=== PATIENT | female | born 1995 | race Caucasian/White ===

== ENCOUNTER 2019-03-29 15:12 | Emergency (ER) | payer MEDICAID, OTHER, SELFPAY ==
--- NOTE | 2019-03-29 15:34 | EDM.PDOC ---
ED HPI GENERAL MEDICAL PROBLEM - General Chief Complaint: Neurological Problem Stated Complaint: NUMBNESS AND DROOPINESS OF RIGHT SIDE OF FACE Time Seen by Provider: 03/29/19 15:23 Source of Information: Reports: Patient History Limitations: Reports: No Limitations - History of Present Illness INITIAL COMMENTS - FREE TEXT/NARRATIVE: HISTORY AND PHYSICAL: History of present illness: Patient is a 22-year-old female presents to the ED today with concern of right- sided facial drooping today. Patient states that she had had an episode of this approximately 2 years ago for about a week and had gone away on its own. Patient denies any weakness of her arms or her legs. Other than the facial drooping on the right side, she denies any other symptoms or concerns. Patient denies any health history. Patient denies fever, chills, chest pain, shortness of breath, or cough. Denies headache, neck stiff ness, change in vision, syncope, or near syncope. Denies nausea, vomiting, abdominal pain, diarrhea, constipation, or dysuria. Has not noted any blood in urine or stool. Patient has been eating and drinking appropriately. Review of systems: As per history of present illness and below otherwise all systems reviewed and negative. Past medical history: As per history of present illness and as reviewed below otherwise noncontributory. Surgical history: As per history of present illness and as reviewed below otherwise noncontributory. Social history: See social history for further information Family history: As per history of present illness and as reviewed below otherwise noncontributory. Physical exam: General: Patient is alert, oriented, and in no acute distress. Patient laying comfortably on exam table. HEENT: Atraumatic, normocephalic, pupils equal and reactive bilaterally, negative for conjunctival pallor or scleral icterus, mucous membranes moist, TMs normal bilaterally, throat clear, neck supple, nontender, trachea midline. No drooling or trismus noted. No meningeal signs. No hot potato voice noted. Lungs: Clear to auscultation, breath sounds equal bilaterally, chest nontender. Heart: S1S2, regular rate and rhythm without overt murmur Abdomen: Soft, nondistended, nontender. Negative for masses or hepatosplenomegaly. Negative for costovertebral tenderness. Pelvis: Stable nontender. Genitourinary: Deferred. Rectal: Deferred. Skin: Intact, warm, dry. No lesions or rashes noted. Extremities: Atraumatic, negative for cords or calf pain. Neurovascular unremarkable. Patient has full range of motion of both upper and lower extremities without deficit. Neuro: Awake, alert, oriented. Unilateral facial droop on right with inability to furrow right eyebrow. Not as able to close right eye; consistent with 7th cranial nerve / facial nerve resembling bells palsy. Rest of cranial nerves unremarkable. Otherwise, Cerebellum unremarkable. Gait intact. Motor and sensory unremarkable throughout. Notes: Stroke code called upon arrival to ED. GCS [address] Mccann involved in patient care. Discussed the importance of follow up with a primary care provider / neurologist. Voices understanding and is agreeable to plan of care. Denies any further questions or concerns at this time. Diagnostics: Head CT, EKG Therapeutics: Solumedrol Prescription: Prednisone Impression: [place] palsy, right Plan: 1. You can alternate ibuprofen and Tylenol as directed for pain and discomfort. Take medication as prescribed. 2. Follow-up with a primary care provider or neurology as discussed. Return to the ED as needed and as discussed. Definitive disposition and diagnosis as appropriate pending reevaluation and review of above. - Related Data Allergies Allergy/AdvReac Type Severity Reaction Status Date / Time No Known Allergies Allergy Verified 03/29/19 15:21 Home Meds: Home Meds . 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 Musculoskeletal History: Reports: None Neurological History: Reports: None Psychiatric History: Reports: None Endocrine/Metabolic History: Reports: None Hematologic History: Reports: None Immunologic History: Reports: None Oncologic (Cancer) History: Reports: None Dermatologic History: Reports: None - Infectious Disease History Infectious Disease History: Reports: None - Past Surgical History Head Surgeries/Procedures: Reports: None HEENT Surgical History: Reports: Adenoidectomy, Oral Surgery, Tonsillectomy, Other (See Below) Cardiovascular Surgical History: Reports: None GI Surgical History: Reports: None Female Surgical History: Reports: None Endocrine Surgical History: Reports: None Neurological Surgical History: Reports: None Musculoskeletal Surgical History: Reports: None Social & Family History - Family History Family Medical History: Noncontributory - Tobacco Use Smoking Status *Q: Never Smoker - Caffeine Use Caffeine Use: Reports: None - Recreational Drug Use Recreational Drug Use: No ED ROS GENERAL - Review of Systems Review Of Systems: ROS reveals no pertinent complaints other than HPI. ED EXAM, GENERAL - Physical Exam Exam: See Below (See dictation) Course - Vital Signs Last Recorded V/S: Last Vital Signs Temp 36.5 C 03/29/19 15:12 Pulse 109 H 03/29/19 15:12 Resp 18 03/29/19 15:12 BP 155/97 H 03/29/19 15:12 Pulse Ox 99 03/29/19 15:12 - Orders/Labs/Meds Orders: Active Orders 24 hr Category Date Time Status Assess Neurological Status [RC] ASDIRECTED Care 03/29/19 15:24 Active Assess Neurological Status [RC] ASDIRECTED Care 03/29/19 15:43 Active Cardiac Monitoring [RC] . DIRECTED Care 03/29/19 15:43 Active EKG Documentation Completion [RC] STAT Care 03/29/19 15:24 Active EKG Documentation Completion [RC] STAT Care 03/29/19 15:43 Inactive Height and Weight [RC] UPON Care 03/29/19 15:43 Active Initiate Acute Stroke Protocol [RC] STAT Care 03/29/19 15:43 Active NIH Stroke Scale [RC] ASDIRECTED Care 03/29/19 15:24 Active Nursing Bedside Swallow Screen [RC] ASDIRECTED Care 03/29/19 15:43 Active Oxygen Therapy [RC] ASDIRECTED Care 03/29/19 15:43 Active Stroke Education, General [RC] Click to Edit Care 03/29/19 15:43 Active Vital Signs [RC] Q15M Care 03/29/19 15:43 Active Labs: Laboratory Tests 03/29/19 03/29/19 03/29/19 Range/Units 15:17 15:17 15:17 WBC 9.52 (4.0-11.0) K/uL RBC 4.95 (4.30-5.90) M/uL Hgb 14.2 (12.0-16.0) g/dL Hct 42.3 (36.0-46.0) % MCV 85.5 (80.0-98.0) fL MCH 28.7 (27.0-32.0) pg MCHC 33.6 (31.0-37.0) g/dL RDW Std Deviation 41.6 (28.0-62.0) fl RDW Coeff of Rafal 14 (11.0-15.0) % Plt Count 333 (150-400) K/uL MPV 10.90 (7.40-12.00) fL Neut % (Auto) 55.6 (48.0-80.0) % Lymph % (Auto) 31.3 (16.0-40.0) % [place] % (Auto) 11.9 (0.0-15.0) % Eos % (Auto) 0.9 (0.0-7.0) % Baso % (Auto) 0.3 (0.0-1.5) % Neut # (Auto) 5.3 (1.4-5.7) K/uL Lymph # (Auto) 3.0 H (0.6-2.4) K/uL [place] # (Auto) 1.1 H (0.0-0.8) K/uL Eos # (Auto) 0.1 (0.0-0.7) K/uL Baso # (Auto) 0.0 (0.0-0.1) K/uL Nucleated RBC % 0.0 /100WBC Nucleated RBCs # 0 K/uL INR 1.00 APTT 35.7 H (18.6-31.3) SEC Sodium 140 (136-145) mmol/L Potassium 3.9 (3.5-5.1) mmol/L Chloride 106 (98-107) mmol/L Carbon Dioxide 23.0 (21.0-32.0) mmol/L BUN 13 (7.0-18.0) mg/dL Creatinine 0.7 (0.6-1.0) mg/dL Est Cr Clr Drug Dosing TNP Estimated GFR (MDRD) > 60.0 ml/min Glucose 120 H (74-106) mg/dL Calcium 8.9 (8.5-10.1) mg/dL Total Bilirubin 0.3 (0.2-1.0) mg/dL AST 20 (15-37) IU/L ALT 24 (14-63) IU/L Alkaline Phosphatase 52 (46-116) U/L Troponin I < 0.050 (0.000-0.056) ng/mL Total Protein 7.8 (6.4-8.2) g/dL Albumin 4.4 (3.4-5.0) g/dL Globulin 3.4 (2.6-4.0) g/dL Albumin/Globulin Ratio 1.3 (0.9-1.6) TSH 3rd Generation 1.30 (0.36-3.74) uIU/mL Meds: Medications Discontinued Medications Generic Name Dose Route Start Last Admin Trade Name Freq PRN Reason Stop Dose Admin Methylprednisolone Sodium Succinate 125 mg 03/29/19 15:42 03/29/19 15:54 Solu-Medrol IVPUSH 03/29/19 15:43 125 mg ONETIME ONE Administration Departure - Departure Time of Disposition: 17:09 Disposition: Home, Self-Care 01 Clinical Impression: [place] palsy - Discharge Information Instructions: [place] Palsy, Adult Referrals: PCP,None [Primary Care Provider] - Forms: ED Department Discharge Additional Instructions: The following information is given to patients seen in the emergency department who are being discharged to home. This information is to outline your options for follow-up care. We provide all patients seen in our emergency department with a follow-up referral. The need for follow-up, as well as the timing and circumstances, are variable depending upon the specifics of your emergency department visit. If you don't have a primary care physician on staff, we will provide you with a referral. We always advise you to contact your personal physician following an emergency department visit to inform them of the circumstance of the visit and for follow-up with them and/or the need for any referrals to a consulting specialist. The emergency department will also refer you to a specialist when appropriate. This referral assures that you have the opportunity for follow-up care with a specialist. All of these measure are taken in an effort to provide you with optimal care, which includes your follow-up. Under all circumstances we always encourage you to contact your private physician who remains a resource for coordinating your care. When calling for follow-up care, please make the office aware that this follow-up is from your recent emergency room visit. If for any reason you are refused follow-up, please contact the [facility] Emergency Department at and asked to speak to the emergency department charge nurse. [facility] [address] [place] [address] [facility] [address] [place] [address] [facility] [address] [facility], [address] [place] [address] 1. You can alternate ibuprofen and Tylenol as directed for pain and discomfort. Take medication as prescribed. 2. Follow-up with a primary care provider or neurology as discussed. Return to the ED as needed and as discussed. - My Orders Last 24 Hours: My Active Orders 03/29/19 15:24 Assess Neurological Status [RC] ASDIRECTED EKG Documentation Completion [RC] STAT NIH Stroke Scale [RC] ASDIRECTED 03/29/19 15:43 Assess Neurological Status [RC] ASDIRECTED Cardiac Monitoring [RC] . DIRECTED EKG Documentation Completion [RC] STAT Height and Weight [RC] UPON Initiate Acute Stroke Protocol [RC] STAT Nursing Bedside Swallow Screen [RC] ASDIRECTED Oxygen Therapy [RC] ASDIRECTED Stroke Education, General [RC] Click to Edit Vital Signs [RC] Q15M - Assessment/Plan Last 24 Hours: My Active Orders 03/29/19 15:24 Assess Neurological Status [RC] ASDIRECTED EKG Documentation Completion [RC] STAT NIH Stroke Scale [RC] ASDIRECTED 03/29/19 15:43 Assess Neurological Status [RC] ASDIRECTED Cardiac Monitoring [RC] . DIRECTED EKG Documentation Completion [RC] STAT Height and Weight [RC] UPON Initiate Acute Stroke Protocol [RC] STAT Nursing Bedside Swallow Screen [RC] ASDIRECTED Oxygen Therapy [RC] ASDIRECTED Stroke Education, General [RC] Click to Edit Vital Signs [RC] Q15M
[2019-03-29] MEDS ORDERED: methylPREDNISolone Sodium Succinate 125 MG/2 ML SDV IVPUSH ONE (15:42)
[2019-03-29 16:16] LABS: BLOOD UREA NITROGEN,BUN 13 mg/dL (7.0-18.0); CHLORIDE,CL 106 mmol/L (98-107); GLUCOSE RANDOM 120 mg/dL (74-106); POTASSIUM,K 3.9 mmol/L (3.5-5.1); SODIUM,NA 140 mmol/L (136-145)
--- NOTE | 2019-03-29 17:16 | CT ---
Indication: Stroke code. Technique: CT of the head without contrast. Coronal and sagittal reformats. Bone and soft tissue arteries. Comparison: No prior studies available for comparison at this institution. Findings: No acute intracranial hemorrhage or extra-axial collection. No evidence of acute cortical infarction. No mass effect or midline shift. Normal cerebral volume. The ventricles are normal in size, shape and contour. There is normal [place] and white matter differentiation. The orbital contents are normal. Mild polypoid mucosal thickening in the left maxillary sinus. Mastoid air cells are clear. No calvarial fractures. No lytic or sclerotic osseous lesions within the calvarium or skull base. Scalp and other imaged soft tissue structures are normal. Impression: No acute intracranial abnormality. Please note that all CT scans at this facility use dose modulation, iterative reconstruction, and/or weight-based dosing when appropriate to reduce radiation dose to as low as reasonably achievable. Dictated by Mickey Arenas MD @ Mar 29 2019 5:14PM Signed by Dr. Mickey Arenas @ Mar 29 2019 5:16PM
[2019-03-29 17:26] VITALS: BP 127/83; PULSE 77
== END 2019-03-29 17:20 | disposition home or self-care (01) ==
LOC: MW.ED 15:12
DX: G51.0 Bell's palsy (principal); Z98.890 Other specified postprocedural states
CPT/HCPCS: 36415; 70450; 80053; 84443; 84484; 85025; 85610; 85730; 93005; 96374; 99284; J2930

== ENCOUNTER 2019-04-08 07:49 | Emergency (ER) | payer OTHER ==
--- NOTE | 2019-04-08 08:07 | EDM.PDOC ---
ED HPI GENERAL MEDICAL PROBLEM - General Chief Complaint: Back Pain or Injury Stated Complaint: CAN'T MOVE LEGS OR BACK Time Seen by Provider: 04/08/19 08:01 Source of Information: Reports: Patient History Limitations: Reports: No Limitations - History of Present Illness INITIAL COMMENTS - FREE TEXT/NARRATIVE: HISTORY AND PHYSICAL: History of present illness: Patient is a 23-year-old female who presents to the emergency room with complaints of bilateral leg pain, back pain and generalized headache. She reports last week she was treated for Ga's palsy with an oral steroid. Completed this regiment on Monday, symptoms started 2 days ago. Patient denies any fever, chills, neck pain/stiffness, change in vision, syncope or near syncope. Denies any chest pain, shortness of breath or cough. Denies any abdominal pain, nausea, vomiting, diarrhea, constipation or dysuria. Has not noted any blood in urine or stool. Patient has been eating and drinking appropriately. Review of systems: As per history of present illness and below otherwise all systems reviewed and negative. Past medical history: As per history of present illness and as reviewed below otherwise noncontributory. Surgical history: As per history of present illness and as reviewed below otherwise noncontributory. Social history: See social history for further information Family history: As per history of present illness and as reviewed below otherwise noncontributory. Physical exam: General: Well-developed and well-nourished 23-year-old female. Alert and oriented. Nontoxic appearing and in no acute distress. HEENT: Atraumatic, normocephalic, pupils equal and reactive bilaterally, negative for conjunctival pallor or scleral icterus, mucous membranes moist, TMs normal bilaterally, throat clear, neck supple, nontender, trachea midline. No drooling or trismus noted. No meningeal signs. No hot potato voice noted. Lungs: Clear to auscultation, breath sounds equal bilaterally, chest nontender. Heart: S1S2, regular rate and rhythm without overt murmur Abdomen: Soft, nondistended, nontender. Negative for masses or hepatosplenomegaly. Negative for costovertebral tenderness. Pelvis: Stable nontender. Genitourinary: Deferred. Rectal: Deferred. C-spine/Back: No pinpoint vertebral tenderness upon palpation. No crepitus, step -offs or obvious deformities. Patient is ambulatory into the emergency room without deficit, although states it is painful with leg movement. Able to rock back on heels and walk on toes. Denies any urinary or fecal incontinence. Denies any numbness, tingling or saddle paresthesia. Skin: Intact, warm, dry. No lesions or rashes noted. Extremities: Atraumatic, moves all extremities per self without difficulty or deficits, negative for cords or calf pain. Neurovascular unremarkable. Neuro: Awake, alert, oriented. Cranial nerves II through XII unremarkable. Cerebellum unremarkable. Motor and sensory unremarkable throughout. Exam nonfocal. Notes: X-ray shows no acute findings. Lab work is unremarkable. She does feel improved after the IV fluids and medications. All findings were shared with the patient and mother at bedside. Supportive care measures were reviewed and discussed. Voices understanding and is agreeable to plan of care. Denies any further questions or concerns at this time. Diagnostics: CBC, CMP, Lumbar Spine, UA Therapeutics: IV fluids, Toradol Prescription: Diclofenac Tramadol (#15) Impression: Lumbar back pain Plan: 1. Limit your immobility to prevent muscle stiffness. Get up to ambulate/move around/gentle stretching multiple times throughout the day. May alternate heat and ice to the painful areas 2. Tylenol as needed for back pain. Diclofenac is an anti-inflammatory so do not take any additional NSAIDs with this medication, such as ibuprofen or Aleve. Tramadol for moderate to severe pain, this medication may cause drowsiness a do not take it will driving her needing to be functioning outside of the house. 3. Please follow-up with your primary care provider as we discussed. Return to the ED as needed and as discussed. Definitive disposition and diagnosis as appropriate pending reevaluation and review of above. back Pain Score (Numeric/FACES): 10 - Related Data Allergies Allergy/AdvReac Type Severity Reaction Status Date / Time No Known Allergies Allergy Verified 04/08/19 07:57 Home Meds: Home Meds Diclofenac Sodium [Voltaren] 50 mg PO TID PRN #30 tab.ec 04/08/19 [Rx] traMADol [Ultram] 50 mg PO Q4H PRN #15 tab 04/08/19 [Rx] Past Medical History - Past Health History Medical/Surgical History: Denies Medical/Surgical History HEENT History: Reports: None Cardiovascular History: Reports: None Respiratory History: Reports: None Gastrointestinal History: Reports: None Genitourinary History: Reports: None 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 Musculoskeletal History: Reports: None Neurological History: Reports: None Psychiatric History: Reports: None Endocrine/Metabolic History: Reports: None Hematologic History: Reports: None Immunologic History: Reports: None Oncologic (Cancer) History: Reports: None Dermatologic History: Reports: None - Infectious Disease History Infectious Disease History: Reports: None - Past Surgical History Head Surgeries/Procedures: Reports: None HEENT Surgical History: Reports: Adenoidectomy, Oral Surgery, Tonsillectomy, Other (See Below) Cardiovascular Surgical History: Reports: None Respiratory Surgical History: Reports: None GI Surgical History: Reports: None Female Surgical History: Reports: None Endocrine Surgical History: Reports: None Neurological Surgical History: Reports: None Musculoskeletal Surgical History: Reports: None Oncologic Surgical History: Reports: None Dermatological Surgical History: Reports: None Social & Family History - Family History Family Medical History: Noncontributory - Tobacco Use Smoking Status *Q: Never Smoker Second Hand Smoke Exposure: No - Caffeine Use Caffeine Use: Reports: Coffee, Energy Drinks, Soda, Tea - Recreational Drug Use Recreational Drug Use: No ED ROS GENERAL - Review of Systems Review Of Systems: ROS reveals no pertinent complaints other than HPI. ED EXAM,LOWER BACK PAIN/INJURY - Physical Exam Exam: See Below (See dictation) Course - Vital Signs Last Recorded V/S: Last Vital Signs Temp 96.6 F 04/08/19 07:57 Pulse 88 04/08/19 09:39 Resp 16 04/08/19 09:39 BP 123/74 04/08/19 09:39 Pulse Ox 98 04/08/19 09:39 - Orders/Labs/Meds Labs: Laboratory Tests 04/08/19 04/08/19 04/08/19 Range/Units 08:30 08:30 09:22 WBC 11.00 (4.0-11.0) K/uL RBC 4.85 (4.30-5.90) M/uL Hgb 13.9 (12.0-16.0) g/dL Hct 42.4 (36.0-46.0) % MCV 87.4 (80.0-98.0) fL MCH 28.7 (27.0-32.0) pg MCHC 32.8 (31.0-37.0) g/dL RDW Std Deviation 45.5 (28.0-62.0) fl RDW Coeff of Rafal 14 (11.0-15.0) % Plt Count 285 (150-400) K/uL MPV 10.60 (7.40-12.00) fL Add Manual Diff YES Neutrophils % (Manual) 59 (48.0-80.0) % Lymphocytes % (Manual) 28 (16.0-40.0) % Monocytes % (Manual) 11 (0.0-15.0) % Eosinophils % (Manual) 1 (0.0-7.0) % Myelocytes % 1 % Nucleated RBC % 0.0 /100WBC Absolute Seg Neuts 6.5 H (1.4-5.7) Lymphocytes # (Manual) 3.1 H (0.6-2.4) Monocytes # (Manual) 1.2 H (0.0-0.8) Eosinophils # (Manual) 0.1 (0.0-0.7) Absolute Myelocytes 0.1 Nucleated RBCs # 0 K/uL Sodium 140 (136-145) mmol/L Potassium 4.0 (3.5-5.1) mmol/L Chloride 105 (98-107) mmol/L Carbon Dioxide 27.4 (21.0-32.0) mmol/L BUN 18 (7.0-18.0) mg/dL Creatinine 0.9 (0.6-1.0) mg/dL Est Cr Clr Drug Dosing 101.60 mL/min Estimated GFR (MDRD) > 60.0 ml/min Glucose 95 (74-106) mg/dL Calcium 8.9 (8.5-10.1) mg/dL Total Bilirubin 0.3 (0.2-1.0) mg/dL AST 8 L (15-37) IU/L ALT 21 (14-63) IU/L Alkaline Phosphatase 46 (46-116) U/L Total Protein 6.6 (6.4-8.2) g/dL Albumin 3.3 L (3.4-5.0) g/dL Globulin 3.3 (2.6-4.0) g/dL Albumin/Globulin Ratio 1.0 (0.9-1.6) Urine Color YELLOW Urine Appearance CLEAR Urine pH 6.0 (5.0-8.0) Ur Specific [place] 1.010 (1.001-1.035) Urine Protein NEGATIVE (NEGATIVE) mg/dL Urine Glucose (UA) NEGATIVE (NEGATIVE) mg/dL Urine Ketones NEGATIVE (NEGATIVE) mg/dL Urine Occult Blood MODERATE H (NEGATIVE) Urine Nitrite NEGATIVE (NEGATIVE) Urine Bilirubin NEGATIVE (NEGATIVE) Urine Urobilinogen 0.2 (<2.0) EU/dL Ur Leukocyte Esterase NEGATIVE (NEGATIVE) Urine RBC 0-1 (0-2/HPF) Urine WBC 0-1 (0-5/HPF) Ur Epithelial Cells RARE (NONE-FEW) Urine Bacteria RARE (NEGATIVE) Meds: Medications Discontinued Medications Generic Name Dose Route Start Last Admin Trade Name Freq PRN Reason Stop Dose Admin Sodium Chloride 1,000 mls @ 999 mls/hr 04/08/19 08:11 04/08/19 08:32 Normal Saline IV 04/08/19 09:11 999 mls/hr STAT ONE Administration Ketorolac Tromethamine 30 mg 04/08/19 08:11 04/08/19 08:32 Toradol IVPUSH 04/08/19 08:12 30 mg ONETIME ONE Administration Departure - Departure Time of Disposition: 09:44 Disposition: Home, Self-Care 01 Clinical Impression: Lumbar back pain - Discharge Information Prescriptions: Diclofenac Sodium [Voltaren] 50 mg PO TID PRN #30 tab.ec PRN Reason: Pain traMADol [Ultram] 50 mg PO Q4H PRN #15 tab PRN Reason: Pain Instructions: Acute Back Pain, Adult Referrals: PCP,None [Primary Care Provider] - Forms: ED Department Discharge Additional Instructions: The following information is given to patients seen in the emergency department who are being discharged to home. This information is to outline your options for follow-up care. We provide all patients seen in our emergency department with a follow-up referral. The need for follow-up, as well as the timing and circumstances, are variable depending upon the specifics of your emergency department visit. If you don't have a primary care physician on staff, we will provide you with a referral. We always advise you to contact your personal physician following an emergency department visit to inform them of the circumstance of the visit and for follow-up with them and/or the need for any referrals to a consulting specialist. The emergency department will also refer you to a specialist when appropriate. This referral assures that you have the opportunity for follow-up care with a specialist. All of these measure are taken in an effort to provide you with optimal care, which includes your follow-up. Under all circumstances we always encourage you to contact your private physician who remains a resource for coordinating your care. When calling for follow-up care, please make the office aware that this follow-up is from your recent emergency room visit. If for any reason you are refused follow-up, please contact the [facility] Emergency Department at and asked to speak to the emergency department charge nurse. [facility] Primary Care [address] [place] [address] [facility] [address] [place] [id number] 1. Limit your immobility to prevent muscle stiffness. Get up to ambulate/move around/gentle stretching multiple times throughout the day. May alternate heat and ice to the painful areas 2. Tylenol as needed for back pain. Diclofenac is an anti-inflammatory so do not take any additional NSAIDs with this medication, such as ibuprofen or Aleve. Tramadol for moderate to severe pain, this medication may cause drowsiness a do not take it will driving her needing to be functioning outside of the house. 3. Please follow-up with your primary care provider as we discussed. Return to the ED as needed and as discussed.
[2019-04-08] MEDS ORDERED: Sodium Chloride 0.9% 1,000 ML IV ONE (08:11)
[2019-04-08] MEDS ORDERED: Ketorolac 30 MG/ML SDV IVPUSH ONE (08:11)
[2019-04-08 08:57] LABS: CHLORIDE,CL 105 mmol/L (98-107); SODIUM,NA 140 mmol/L (136-145)
--- NOTE | 2019-04-08 09:28 | CR ---
INDICATION: Pain. TECHNIQUE: Three views of the lumbar spine. COMPARISON: None. FINDINGS: No fracture, spondylolisthesis, disc space narrowing or curvature abnormality. Sacroiliac joints unremarkable. IMPRESSION: Negative lumbar spine. Dictated by Jaison Martinez MD @ Apr 08 2019 9:25AM Signed by Dr. Jaison Martinez @ Apr 08 2019 9:27AM
[2019-04-08 09:40] VITALS: BP 123/74
== END 2019-04-08 10:00 | disposition home or self-care (01) ==
LOC: MW.ED 07:49
DX: M54.5 Low back pain (principal); Z98.890 Other specified postprocedural states
CPT/HCPCS: 36415; 72100; 80053; 81001; 85025; 96361; 96374; 99283; J1885; J7040

== ENCOUNTER 2019-04-13 10:17 | Emergency (ER) | payer OTHER ==
[2019-04-13] MEDS ORDERED: Sodium Chloride 0.9% 1,000 ML IV ONE (10:34)
[2019-04-13] MEDS ORDERED: Ketorolac 30 MG/ML SDV IVPUSH ONE (10:34)
--- NOTE | 2019-04-13 10:42 | EDM.PDOC ---
ED HPI GENERAL MEDICAL PROBLEM - General Chief Complaint: Chest Pain Stated Complaint: PAIN Time Seen by Provider: 04/13/19 10:20 Source of Information: Reports: Patient History Limitations: Reports: No Limitations - History of Present Illness INITIAL COMMENTS - FREE TEXT/NARRATIVE: HISTORY AND PHYSICAL: History of present illness: Patient is a 23-year-old female presents to the ED today with concern of bilateral neck pain that radiates down into the front of her chest. Patient states her symptoms started at 3 in the morning and initially felt like a pinched nerve in her neck. Patient states since then the pain is 10 out of 10 and radiates down into the front of her chest. Patient states she did take 1 tramadol at 3 this morning which did not help her symptoms. Patient was seen recently on 04/08/19 and was treated for lumbar pain and given tramadol at that time for severe pain. Patient states that her lumbar pain and back pain went away shortly after that ED visit and she has not had issues with her low back since. Patient was also recently seen on 03/29/19 and was diagnosed with Ga's palsy and treated with an oral steroid which she finished 2 days prior to her last ED visit. Patient states these symptoms resolved and she has an appointment in the clinic the first week of April for follow-up. Patient denies any other health history or any other symptoms or concerns at this time. Patient denies fever, chills, shortness of breath, or cough. Denies headache, neck stiff ness, change in vision, syncope, or near syncope. Denies nausea, vomiting, abdominal pain, diarrhea, constipation, or dysuria. Has not noted any blood in urine or stool. Patient has been eating and drinking appropriately. Review of systems: As per history of present illness and below otherwise all systems reviewed and negative. Past medical history: As per history of present illness and as reviewed below otherwise noncontributory. Surgical history: As per history of present illness and as reviewed below otherwise noncontributory. Social history: See social history for further information Family history: As per history of present illness and as reviewed below otherwise noncontributory. Physical exam: General: Patient is alert, oriented, and in no acute distress. Patient laying comfortably on exam table but is tearful on exam. HEENT: Atraumatic, normocephalic, pupils equal and reactive bilaterally, negative for conjunctival pallor or scleral icterus, mucous membranes moist, TMs normal bilaterally, throat clear, neck supple, nontender, trachea midline. No drooling or trismus noted. No meningeal signs. No hot potato voice noted. Lungs: Clear to auscultation, breath sounds equal bilaterally, chest nontender. Heart: S1S2, regular rate and rhythm without overt murmur Abdomen: Soft, nondistended, nontender. Negative for masses or hepatosplenomegaly. Negative for costovertebral tenderness. Pelvis: Stable nontender. Genitourinary: Deferred. Rectal: Deferred. Skin: Intact, warm, dry. No lesions or rashes noted. Extremities/musculoskeletal: Atraumatic, negative for cords or calf pain. Neurovascular unremarkable. No obvious deformities of the complete spine. No step-offs, crepitus, or point tenderness to palpation of the spinous process of complete spine. Patient does have pain with palpation of the bilateral trapezius muscle bodies insertion and over the muscle body themselves. Patient has full range of motion of the complete spine without pain or difficulty. Negative Kernig and Brudzinski sign. Neuro: Awake, alert, oriented. Cranial nerves II through XII unremarkable. Cerebellum unremarkable. Motor and sensory unremarkable throughout. Exam nonfocal. Notes: Discussed the importance for follow-up with primary care provider. Voices understanding and is agreeable to plan of care. Denies any further questions or concerns at this time. Diagnostics: CBC, CMP, UA, hCG, EKG, troponin, chest x-ray, cervical spine x-ray, TSH, lipase , mono Therapeutics: Toradol, saline, Norflex Prescription: Flexeril (patient states she does not have any more Tramadol but does have diclofenac available for pain) Impression: Trapezius muscle pain Plan: 1. Rest, ice or heat the affected area. You can apply ice and or heat 15 minutes on, 15 minutes off. 2. Tylenol and/or Ibuprofen as directed for pain management or discomfort. Take medication as prescribed 3. Follow up with the primary care provider as discussed. Return to the ED as needed and as discussed. Definitive disposition and diagnosis as appropriate pending reevaluation and review of above. Neck/Chest Pain Score (Numeric/FACES): 10 - Related Data Allergies Allergy/AdvReac Type Severity Reaction Status Date / Time No Known Allergies Allergy Verified 04/13/19 10:21 Home Meds: Home Meds Diclofenac Sodium [Voltaren] 50 mg PO TID PRN #30 tab.ec 04/08/19 [Rx] traMADol [Ultram] 50 mg PO Q4H PRN #15 tab 04/08/19 [Rx] Cyclobenzaprine [Flexeril] 10 mg PO TID PRN #6 tab 04/13/19 [Rx] Past Medical History - Past Health History Medical/Surgical History: Denies Medical/Surgical History HEENT History: Reports: None Cardiovascular History: Reports: None Respiratory History: Reports: None Gastrointestinal History: Reports: None Genitourinary History: Reports: None [employer] History: Reports: None Musculoskeletal History: Reports: None Neurological History: Reports: None Psychiatric History: Reports: None Endocrine/Metabolic History: Reports: None Hematologic History: Reports: None Immunologic History: Reports: None Oncologic (Cancer) History: Reports: None Dermatologic History: Reports: None - Infectious Disease History Infectious Disease History: Reports: None - Past Surgical History Head Surgeries/Procedures: Reports: None HEENT Surgical History: Reports: Adenoidectomy, Oral Surgery, Tonsillectomy, Other (See Below) Cardiovascular Surgical History: Reports: None Respiratory Surgical History: Reports: None GI Surgical History: Reports: None Female Surgical History: Reports: None Endocrine Surgical History: Reports: None Neurological Surgical History: Reports: None Musculoskeletal Surgical History: Reports: None Oncologic Surgical History: Reports: None Dermatological Surgical History: Reports: None Social & Family History - Family History Family Medical History: Noncontributory - Tobacco Use Smoking Status *Q: Never Smoker - Caffeine Use Caffeine Use: Reports: Coffee - Recreational Drug Use Recreational Drug Use: No ED ROS GENERAL - Review of Systems Review Of Systems: ROS reveals no pertinent complaints other than HPI. ED EXAM, GENERAL - Physical Exam Exam: See Below (See dictation) Course - Vital Signs Last Recorded V/S: Last Vital Signs Temp 36.8 C 04/13/19 10:21 Pulse 117 H 04/13/19 10:21 Resp 24 H 04/13/19 10:21 BP 141/97 H 04/13/19 10:21 Pulse Ox 97 04/13/19 10:21 - Orders/Labs/Meds Orders: Active Orders 24 hr Category Date Time Status EKG Documentation Completion [RC] STAT Care 04/13/19 10:26 Active UA RFX SOCO AND CULT IF INDIC [URIN] Stat Lab 04/13/19 10:26 Ordered Labs: Laboratory Tests 04/13/19 04/13/19 04/13/19 Range/Units 10:20 10:20 10:20 WBC 9.58 (4.0-11.0) K/uL RBC 4.74 (4.30-5.90) M/uL Hgb 13.5 (12.0-16.0) g/dL Hct 41.2 (36.0-46.0) % MCV 86.9 (80.0-98.0) fL MCH 28.5 (27.0-32.0) pg MCHC 32.8 (31.0-37.0) g/dL RDW Std Deviation 43.1 (28.0-62.0) fl RDW Coeff of Rafal 13 (11.0-15.0) % Plt Count 300 (150-400) K/uL MPV 10.60 (7.40-12.00) fL Neut % (Auto) 65.7 (48.0-80.0) % Lymph % (Auto) 22.3 (16.0-40.0) % Fajardo % (Auto) 10.5 (0.0-15.0) % Eos % (Auto) 1.3 (0.0-7.0) % Baso % (Auto) 0.2 (0.0-1.5) % Neut # (Auto) 6.3 H (1.4-5.7) K/uL Lymph # (Auto) 2.1 (0.6-2.4) K/uL Fajardo # (Auto) 1.0 H (0.0-0.8) K/uL Eos # (Auto) 0.1 (0.0-0.7) K/uL Baso # (Auto) 0.0 (0.0-0.1) K/uL Nucleated RBC % 0.0 /100WBC Nucleated RBCs # 0 K/uL Sodium 142 (136-145) mmol/L Potassium 4.2 (3.5-5.1) mmol/L Chloride 108 H (98-107) mmol/L Carbon Dioxide 25.4 (21.0-32.0) mmol/L BUN 16 (7.0-18.0) mg/dL Creatinine 0.9 (0.6-1.0) mg/dL Est Cr Clr Drug Dosing 87.48 mL/min Estimated GFR (MDRD) > 60.0 ml/min Glucose 103 (74-106) mg/dL Calcium 9.4 (8.5-10.1) mg/dL Total Bilirubin 0.3 (0.2-1.0) mg/dL AST 16 (15-37) IU/L ALT 31 (14-63) IU/L Alkaline Phosphatase 54 (46-116) U/L Troponin I (0.000-0.056) ng/mL Total Protein 6.9 (6.4-8.2) g/dL Albumin 3.4 (3.4-5.0) g/dL Globulin 3.5 (2.6-4.0) g/dL Albumin/Globulin Ratio 1.0 (0.9-1.6) Lipase 172 (73-393) U/L TSH 3rd Generation (0.36-3.74) uIU/mL HCG, Qual NEGATIVE (NEG) Monoscreen (NEG) 04/13/19 04/13/19 Range/Units 10:20 10:20 WBC (4.0-11.0) K/uL RBC (4.30-5.90) M/uL Hgb (12.0-16.0) g/dL Hct (36.0-46.0) % MCV (80.0-98.0) fL MCH (27.0-32.0) pg MCHC (31.0-37.0) g/dL RDW Std Deviation (28.0-62.0) fl RDW Coeff of Rafal (11.0-15.0) % Plt Count (150-400) K/uL MPV (7.40-12.00) fL Neut % (Auto) (48.0-80.0) % Lymph % (Auto) (16.0-40.0) % Fajardo % (Auto) (0.0-15.0) % Eos % (Auto) (0.0-7.0) % Baso % (Auto) (0.0-1.5) % Neut # (Auto) (1.4-5.7) K/uL Lymph # (Auto) (0.6-2.4) K/uL Fajardo # (Auto) (0.0-0.8) K/uL Eos # (Auto) (0.0-0.7) K/uL Baso # (Auto) (0.0-0.1) K/uL Nucleated RBC % /100WBC Nucleated RBCs # K/uL Sodium (136-145) mmol/L Potassium (3.5-5.1) mmol/L Chloride (98-107) mmol/L Carbon Dioxide (21.0-32.0) mmol/L BUN (7.0-18.0) mg/dL Creatinine (0.6-1.0) mg/dL Est Cr Clr Drug Dosing mL/min Estimated GFR (MDRD) ml/min Glucose (74-106) mg/dL Calcium (8.5-10.1) mg/dL Total Bilirubin (0.2-1.0) mg/dL AST (15-37) IU/L ALT (14-63) IU/L Alkaline Phosphatase (46-116) U/L Troponin I < 0.050 (0.000-0.056) ng/mL Total Protein (6.4-8.2) g/dL Albumin (3.4-5.0) g/dL Globulin (2.6-4.0) g/dL Albumin/Globulin Ratio (0.9-1.6) Lipase (73-393) U/L TSH 3rd Generation 1.37 (0.36-3.74) uIU/mL HCG, Qual (NEG) Monoscreen NEGATIVE (NEG) Meds: Medications Discontinued Medications Generic Name Dose Route Start Last Admin Trade Name Joeq PRN Reason Stop Dose Admin Sodium Chloride 1,000 mls @ 999 mls/hr 04/13/19 10:34 04/13/19 10:50 Normal Saline IV 04/13/19 11:34 999 mls/hr STAT ONE Administration Ketorolac Tromethamine 30 mg 04/13/19 10:34 04/13/19 10:50 Toradol IVPUSH 04/13/19 10:35 30 mg ONETIME ONE Administration Orphenadrine Citrate 60 mg 04/13/19 10:34 04/13/19 10:54 Norflex IM 04/13/19 10:35 60 mg NOW STA Administration Departure - Departure Time of Disposition: 11:39 Disposition: Home, Self-Care 01 Clinical Impression: Trapezius muscle spasm - Discharge Information Prescriptions: Cyclobenzaprine [Flexeril] 10 mg PO TID PRN #6 tab PRN Reason: Spasms Referrals: PCP,None [Primary Care Provider] - Forms: ED Department Discharge Additional Instructions: The following information is given to patients seen in the emergency department who are being discharged to home. This information is to outline your options for follow-up care. We provide all patients seen in our emergency department with a follow-up referral. The need for follow-up, as well as the timing and circumstances, are variable depending upon the specifics of your emergency department visit. If you don't have a primary care physician on staff, we will provide you with a referral. We always advise you to contact your personal physician following an emergency department visit to inform them of the circumstance of the visit and for follow-up with them and/or the need for any referrals to a consulting specialist. The emergency department will also refer you to a specialist when appropriate. This referral assures that you have the opportunity for follow-up care with a specialist. All of these measure are taken in an effort to provide you with optimal care, which includes your follow-up. Under all circumstances we always encourage you to contact your private physician who remains a resource for coordinating your care. When calling for follow-up care, please make the office aware that this follow-up is from your recent emergency room visit. If for any reason you are refused follow-up, please contact the [facility] Emergency Department at and asked to speak to the emergency department charge nurse. [facility] [address] [place] [id number] [address] [id number] 1. Rest, ice or heat the affected area. You can apply ice and or heat 15 minutes on, 15 minutes off. 2. Tylenol and/or Ibuprofen as directed for pain management or discomfort. Take medication as prescribed 3. Follow up with the primary care provider as discussed. Return to the ED as needed and as discussed. - My Orders Last 24 Hours: My Active Orders 04/13/19 10:26 EKG Documentation Completion [RC] STAT UA RFX SOCO AND CULT IF INDIC [URIN] Stat - Assessment/Plan Last 24 Hours: My Active Orders 04/13/19 10:26 EKG Documentation Completion [RC] STAT UA RFX SOCO AND CULT IF INDIC [URIN] Stat
[2019-04-13 11:12] LABS: CHLORIDE,CL 108 mmol/L (98-107); SODIUM,NA 142 mmol/L (136-145)
--- NOTE | 2019-04-13 11:34 | CR ---
Indication: Pain. Shortness of breath. Technique: Single AP portable view of the chest was obtained. Comparison: The Findings: Heart is normal in size. The lungs are clear. No infiltrate, pleural effusion, or pneumothorax is identified. Impression: No acute cardiopulmonary process. Dictated by Regina Henriquez MD @ Apr 13 2019 11:32AM Signed by Dr. Regina Henriquez @ Apr 13 2019 11:33AM
--- NOTE | 2019-04-13 11:36 | CR ---
Indication: Pain. Technique: Three views of the cervical spine were obtained. Comparison: None Findings: Alignment of the cervical spine is within normal limits. The vertebral body heights are well maintained. The intervertebral disc space heights are well maintained. No acute fracture or subluxation is identified. The odontoid is intact. Impression: No acute fracture. Dictated by Regina Henriquez MD @ Apr 13 2019 11:33AM Signed by Dr. Regina Henriquez @ Apr 13 2019 11:35AM
[2019-04-13 12:41] VITALS: BP 129/80
== END 2019-04-13 12:08 | disposition home or self-care (01) ==
LOC: MW.ED 10:17
DX: M62.838 Other muscle spasm (principal); Z98.890 Other specified postprocedural states
CPT/HCPCS: 36415; 71045; 72040; 80053; 81003; 83690; 84443; 84484; 84703; 85025; 86308; 93005; 96361; 96372; 96374; 99284; J1885; J2360; J7040; 99283

== ENCOUNTER 2019-09-30 12:14 | Emergency (ER) | payer MEDICAID, OTHER ==
--- NOTE | 2019-09-30 13:46 | EDM.PDOC ---
ED HPI GENERAL MEDICAL PROBLEM - General Chief Complaint: Respiratory Problem Stated Complaint: FLU SYMPTOMS Time Seen by Provider: 09/30/19 13:46 Source of Information: Reports: Patient History Limitations: Reports: No Limitations - History of Present Illness INITIAL COMMENTS - FREE TEXT/NARRATIVE: Patient is a 24-year-old female who is complaining having flulike symptoms for the past 4 weeks. She also has a cough which is mainly nonproductive which she has been worse for the last week. She is feeling nauseous and has vomited several times after paroxysms of coughing. She denies any dysuria or hematuria. Patient has had no bloody or tarry stools. Patient is not a cigarette smoker. She presents today with tachycardia. Denies any dyspnea on exertion. She denies any pain or swelling to her ankles or calfs. Patient was seen in the clinic a few weeks ago and had a negative influenza at that time. Duration: Getting Worse Severity: Mild Improves with: Reports: None Worsens with: Reports: None bodyache Pain Score (Numeric/FACES): 7 - Related Data Allergies Allergy/AdvReac Type Severity Reaction Status Date / Time No Known Allergies Allergy Verified 09/30/19 12:49 Home Meds: Home Meds Azithromycin 250 mg PO DAILY #6 tablet 09/30/19 [Rx] Codeine/guaiFENesin [Robitussin AC] 10 bottle PO QID PRN #1 bottle 09/30/19 [Rx] predniSONE [Prednisone] 20 mg PO DAILY #5 tablet 09/30/19 [Rx] Past Medical History - Past Health History Medical/Surgical History: Denies Medical/Surgical History HEENT History: Reports: None Cardiovascular History: Reports: None Respiratory History: Reports: None Gastrointestinal History: Reports: None Genitourinary History: Reports: None [employer] History: Reports: None Musculoskeletal History: Reports: None Neurological History: Reports: None Psychiatric History: Reports: None Endocrine/Metabolic History: Reports: None Hematologic History: Reports: None Immunologic History: Reports: None Oncologic (Cancer) History: Reports: None Dermatologic History: Reports: None - Infectious Disease History Infectious Disease History: Reports: None - Past Surgical History Head Surgeries/Procedures: Reports: None HEENT Surgical History: Reports: Adenoidectomy, Oral Surgery, Tonsillectomy, Other (See Below) Cardiovascular Surgical History: Reports: None Respiratory Surgical History: Reports: None GI Surgical History: Reports: None Female Surgical History: Reports: None Endocrine Surgical History: Reports: None Neurological Surgical History: Reports: None Musculoskeletal Surgical History: Reports: None Oncologic Surgical History: Reports: None Dermatological Surgical History: Reports: None Social & Family History - Family History Family Medical History: Noncontributory - Tobacco Use Smoking Status *Q: Never Smoker Second Hand Smoke Exposure: No - Caffeine Use Caffeine Use: Reports: None - Recreational Drug Use Recreational Drug Use: No ED ROS GENERAL - Review of Systems Review Of Systems: Comprehensive ROS is negative, except as noted in HPI. ED EXAM, GENERAL - Physical Exam Exam: See Below Free Text/Narrative:: Exam: See Below Exam Limited By: No Limitations Head: Atraumatic Neck: Normal Inspection. No: Carotid Bruit, Lymphadenopathy (R) Respiratory/Chest: No Respiratory Distress, Lungs Clear, Normal Breath Sounds, No Accessory Muscle Use. No: Chest Non-Tender. No wheezing or consolidation. Cardiovascular: Normal Peripheral Pulses, Regular Rate, Rhythm, No Edema, No JVD GI/Abdominal: Normal Bowel Sounds, Tender. No: Non-Tender, Splenomegaly Back Exam: Normal Inspection. No: CVA Tenderness (R) Extremities: Normal Inspection. No: No Pedal Edema Neurological: Alert, Oriented, Normal Cognition Psychiatric: Normal Affect Skin Exam: Warm Lymphatic: No Adenopathy Course - Vital Signs Text/Narrative:: Patient is positive for influenza A. Negative for strep. Her heart rate came down with a liter of IV fluids. She is feeling better at this time. I am putting her on antibiotic for acute bronchitis and pharyngitis. Have also given her prescription for some prednisone and some Robitussin-AC. Last Recorded V/S: Last Vital Signs Temp 36.4 C 09/30/19 12:50 Pulse 107 H 09/30/19 15:08 Resp 18 09/30/19 12:50 BP 139/74 09/30/19 12:50 Pulse Ox 97 09/30/19 12:50 - Orders/Labs/Meds Orders: Active Orders 24 hr Category Date Time Status RT Aerosol Therapy [RC] ASDIRECTED Care 09/30/19 13:52 Active CULTURE STREP A CONFIRMATION [] Stat Lab 09/30/19 13:03 Results STREP SCRN A RAPID W CULT CONF [] Stat Lab 09/30/19 13:03 Results Meds: Medications Discontinued Medications Generic Name Dose Route Start Last Admin Trade Name Iker PRN Reason Stop Dose Admin Albuterol/Ipratropium 3 ml 09/30/19 13:52 09/30/19 14:11 Duoneb 3.0-0.5 Mg/3 Ml NEB 09/30/19 13:53 3 ml ONETIME ONE Administration Sodium Chloride 1,000 mls @ 999 mls/hr 09/30/19 14:29 09/30/19 14:33 Normal Saline IV 09/30/19 15:29 999 mls/hr .Bolus ONE Administration Sodium Chloride 1,000 mls @ 999 mls/hr 09/30/19 14:30 09/30/19 14:38 Normal Saline IV 09/30/19 15:30 Not Given .BOLUS ONE Departure - Departure Time of Disposition: 15:40 Disposition: Home, Self-Care 01 Condition: Good Clinical Impression: Influenza A, Acute bronchitis - Discharge Information Instructions: Influenza, Adult, [id number], Acute Bronchitis, Adult, Easy-to- Read Referrals: PCP,None [Primary Care Provider] - Forms: ED Department Discharge Additional Instructions: Meds as prescribed. Return to ER symptoms are worse. Increase fluids keep urine light yellow to clear in color. Return to ER if worse. Care Plan Goals: The following information is given to patients seen in the emergency department who are being discharged to home. This information is to outline your options for follow-up care. We provide all patients seen in our emergency department with a follow-up referral. The need for follow-up, as well as the timing and circumstances, are variable depending upon the specifics of your emergency department visit. If you don't have a primary care physician on staff, we will provide you with a referral. We always advise you to contact your personal physician following an emergency department visit to inform them of the circumstance of the visit and for follow-up with them and/or the need for any referrals to a consulting specialist. The emergency department will also refer you to a specialist when appropriate. This referral assures that you have the opportunity for follow-up care with a specialist. All of these measure are taken in an effort to provide you with optimal care, which includes your follow-up. Under all circumstances we always encourage you to contact your private physician who remains a resource for coordinating your care. When calling for follow-up care, please make the office aware that this follow-up is from your recent emergency room visit. If for any reason you are refused follow-up, please contact the [facility] Emergency Department at and asked to speak to the emergency department charge nurse. Sepsis Event Note - Evaluation Sepsis Screening Result: No Definite Risk - Focused Exam Vital Signs: Vital Signs Temp Pulse Resp BP Pulse Ox 09/30/19 15:08 107 H 09/30/19 12:50 36.4 C 124 H 18 139/74 97 Date Exam was Performed: 09/30/19 Time Exam was Performed: 15:39 - My Orders Last 24 Hours: My Active Orders 09/30/19 13:52 RT Aerosol Therapy [RC] ASDIRECTED - Assessment/Plan Last 24 Hours: My Active Orders 09/30/19 13:52 RT Aerosol Therapy [RC] ASDIRECTED
[2019-09-30] MEDS ORDERED: Albuterol/Ipratropium 3.0-0.5 MG/3 ML Neb Soln NEB ONE (13:52)
[2019-09-30] MEDS ORDERED: Sodium Chloride 0.9% 1,000 ML IV ONE ×2 (14:29→14:30)
[2019-09-30 16:08] VITALS: BP 104/72; PULSE 109
== END 2019-09-30 16:05 | disposition home or self-care (01) ==
LOC: MW.ED 12:14
DX: J10.1 Influenza due to other identified influenza virus with other respiratory manifestations (principal); J20.9 Acute bronchitis, unspecified; Z79.899 Other long term (current) drug therapy
CPT/HCPCS: 87081; 87804; 87880; 94640; 96360; 99283; J7030; J7620-GY

== ENCOUNTER 2020-10-28 02:32 | Inpatient (IN) | payer MEDICAID ==
[2020-10-28] MEDS ORDERED: Nalbuphine 10 MG/1 ML Vial IVPUSH PRN (04:20)
[2020-10-28] MEDS ORDERED: Carboprost Tromethamine 250 MCG/1 ML Amp IM PRN (04:20)
[2020-10-28] MEDS ORDERED: Water For Irrigation,Sterile 1,000 ML Container IRR PRN (04:20)
[2020-10-28] MEDS ORDERED: Methylergonovine 0.2 MG/1 ML Amp IM PRN (04:20)
[2020-10-28] MEDS ORDERED: Tranexamic Acid 1,000 MG in Sodium Chloride 0.9% 100 ML IV PRN (04:20)
[2020-10-28] MEDS ORDERED: Misoprostol 200 MCG Tab PO PRN (04:20)
[2020-10-28] MEDS ORDERED: Lidocaine 1% 50 ML MDV INJECT PRN (04:20)
[2020-10-28] MEDS ORDERED: Butorphanol 1 MG/ML SDV IVPUSH PRN (04:20)
[2020-10-28] MEDS ORDERED: Oxytocin/0.9 % Sodium Chloride 30 UNIT/500 ML BAG IV SCH ×2 (04:30→04:45)
[2020-10-28] MEDS ORDERED: Sodium Chloride 0.9% 2.5 ML Syringe FLUSH PRN (04:35)
[2020-10-28] MEDS ORDERED: Sodium Chloride 0.9% 10 ML Syringe FLUSH PRN (04:35)
[2020-10-28] MEDS ORDERED: Ondansetron 4 MG/2 ML SDV IVPUSH PRN (04:35)
[2020-10-28] MEDS ORDERED: Sodium Chloride 0.9% 10 ML SDV IV PRN (04:35)
[2020-10-28] MEDS: Lactated Ringers 1,000 ML IV SCH ×4 (08:30→14:54)
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
[2020-10-28] MEDS ORDERED: Ropivacaine HCl/PF 100 ML ONE (11:45)
[2020-10-28] MEDS ORDERED: fentaNYL 100 MCG/2 ML SDV ONE (11:45)
[2020-10-28] MEDS ORDERED: Ropivacaine 0.2% PF 2 MG/ML 20 ML SDV ONE (11:45)
--- NOTE | 2020-10-28 12:18 | PCM.PREANE ---
Preanesthetic Assessment - Procedure Proposed Procedure: NELA - Anesthesia/Transfusion/Family Hx Anesthesia History: Prior Anesthesia Without Reaction Family History of Anesthesia Reaction: No Transfusion History: No Prior Transfusion(s) Intubation History: Unknown - Review of Systems General: No Symptoms Pulmonary: No Symptoms Cardiovascular: No Symptoms Gastrointestinal: No Symptoms Neurological: No Symptoms Other: Reports: Anxiety (History of Slipped Disc.) - Physical Assessment NPO Status Date: 10/28/20 NPO Status Time: 12:18 (Clear liquids) Height: 1.68 m Weight: 54.431 kg ASA Class: 2 Airway Class: Mallampati = 3 Dentition: Reports: Missing Tooth/Teeth Thyro-Mental Finger Breadths: 3 Mouth Opening Finger Breadths: 3 ROM/Head Extension: Full Cardiovascular: Regular Rate - Lab Values: Laboratory Last Values WBC 7.94 K/uL (4.0-11.0) 10/28/20 03:49 RBC 4.38 M/uL (4.30-5.90) 10/28/20 03:49 Hgb 13.4 g/dL (12.0-16.0) 10/28/20 03:49 Hct 40.1 % (36.0-46.0) 10/28/20 03:49 MCV 91.6 fL (80.0-98.0) 10/28/20 03:49 MCH 30.6 pg (27.0-32.0) 10/28/20 03:49 MCHC 33.4 g/dL (31.0-37.0) 10/28/20 03:49 RDW Std Deviation 47.4 fl (28.0-62.0) 10/28/20 03:49 RDW Coeff of Rafal 14 % (11.0-15.0) 10/28/20 03:49 Plt Count 237 K/uL (150-400) 10/28/20 03:49 MPV 12.30 fL (7.40-12.00) H 10/28/20 03:49 Nucleated RBC % 0.0 /100WBC 10/28/20 03:49 Nucleated RBCs # 0 K/uL 10/28/20 03:49 Membrane Rupture POSITIVE 10/28/20 02:55 SARS-CoV-2 RNA (JUAN PABLO) NEGATIVE (NEGATIVE) 10/28/20 03:52 Blood Type O POSITIVE 10/28/20 03:48 Antibody Screen NEGATIVE 10/28/20 03:48 - Allergies Allergies/Adverse Reactions: Allergies Allergy/AdvReac Type Severity Reaction Status Date / Time Tetanus Vaccines and Toxoid Allergy Hives Verified 10/28/20 07:40 - Blood Blood Available: No Product(s) Available: None - Anesthesia Plan Pre-Op Medication Ordered: None - Acknowledgements Anesthesia Type Planned: Epidural Pt an Appropriate Candidate for the Planned Anesthesia: Yes Alternatives and Risks of Anesthesia Discussed w Pt/Guardian: Yes Pt/Guardian Understands and Agrees with Anesthesia Plan: Yes Additional Comments: Extreme anxiety. Discussed procedure with all ? answered. PreAnesthesia Questionnaire - Past Health History Medical/Surgical History: Denies Medical/Surgical History HEENT History: Reports: None Cardiovascular History: Reports: None Respiratory History: Reports: None Gastrointestinal History: Reports: None Genitourinary History: Reports: None DIE DEVELOPER History: Reports: None Musculoskeletal History: Reports: None Neurological History: Reports: Other (See Below) Other Neuro History: Ga's Palsy Psychiatric History: Reports: None Endocrine/Metabolic History: Reports: None Hematologic History: Reports: None Immunologic History: Reports: None Oncologic (Cancer) History: Reports: None Dermatologic History: Reports: None - Infectious Disease History Infectious Disease History: Reports: None - Past Surgical History Head Surgeries/Procedures: Reports: None HEENT Surgical History: Reports: Adenoidectomy, Oral Surgery, Tonsillectomy, Other (See Below) Other HEENT Surgeries/Procedures: tooth extraction Cardiovascular Surgical History: Reports: None Respiratory Surgical History: Reports: None GI Surgical History: Reports: None Female Surgical History: Reports: None Endocrine Surgical History: Reports: None Neurological Surgical History: Reports: None Musculoskeletal Surgical History: Reports: None Oncologic Surgical History: Reports: None Dermatological Surgical History: Reports: None - HOME MEDS Home Medications: Home Meds Azithromycin 250 mg PO DAILY #6 tablet 09/30/19 [Rx] Codeine/guaiFENesin [Robitussin AC] 10 bottle PO QID PRN #1 bottle 09/30/19 [Rx] predniSONE [Prednisone] 20 mg PO DAILY #5 tablet 09/30/19 [Rx] Pnv No.95/Ferrous Fum/Folic AC [ Tablet] 1 each PO 10/28/20 [History]
--- NOTE | 2020-10-28 12:23 | PCM.PREANE ---
Preanesthetic Assessment - Anesthesia/Transfusion/Family Hx Anesthesia History: Prior Anesthesia Without Reaction Family History of Anesthesia Reaction: No Transfusion History: No Prior Transfusion(s) Intubation History: Unknown - Review of Systems General: No Symptoms Pulmonary: No Symptoms Cardiovascular: No Symptoms Gastrointestinal: No Symptoms Neurological: No Symptoms Other: Reports: Anxiety (History of Slipped Disc.) - Physical Assessment NPO Status Date: 10/28/20 NPO Status Time: 12:18 (Clear liquids) Height: 1.68 m Weight: 54.431 kg ASA Class: 2 Mental Status: Alert & Oriented x3 Airway Class: Mallampati = 3 Dentition: Reports: Missing Tooth/Teeth Thyro-Mental Finger Breadths: 3 Mouth Opening Finger Breadths: 3 ROM/Head Extension: Full Lungs: Clear to Auscultation Cardiovascular: Regular Rate - Lab Values: Laboratory Last Values WBC 7.94 K/uL (4.0-11.0) 10/28/20 03:49 RBC 4.38 M/uL (4.30-5.90) 10/28/20 03:49 Hgb 13.4 g/dL (12.0-16.0) 10/28/20 03:49 Hct 40.1 % (36.0-46.0) 10/28/20 03:49 MCV 91.6 fL (80.0-98.0) 10/28/20 03:49 MCH 30.6 pg (27.0-32.0) 10/28/20 03:49 MCHC 33.4 g/dL (31.0-37.0) 10/28/20 03:49 RDW Std Deviation 47.4 fl (28.0-62.0) 10/28/20 03:49 RDW Coeff of Rafal 14 % (11.0-15.0) 10/28/20 03:49 Plt Count 237 K/uL (150-400) 10/28/20 03:49 MPV 12.30 fL (7.40-12.00) H 10/28/20 03:49 Nucleated RBC % 0.0 /100WBC 10/28/20 03:49 Nucleated RBCs # 0 K/uL 10/28/20 03:49 Membrane Rupture POSITIVE 10/28/20 02:55 SARS-CoV-2 RNA (JUAN PABLO) NEGATIVE (NEGATIVE) 03/10/21 03:52 Blood Type O POSITIVE 10/28/20 03:48 Antibody Screen NEGATIVE 10/28/20 03:48 - Allergies Allergies/Adverse Reactions: Allergies Allergy/AdvReac Type Severity Reaction Status Date / Time Tetanus Vaccines and Toxoid Allergy Hives Verified 10/28/20 07:40 - Blood Blood Available: No Product(s) Available: None - Acknowledgements Anesthesia Type Planned: Epidural Pt an Appropriate Candidate for the Planned Anesthesia: Yes Alternatives and Risks of Anesthesia Discussed w Pt/Guardian: Yes Pt/Guardian Understands and Agrees with Anesthesia Plan: Yes Additional Comments: Significant anxiety. Discussed, all ? answered. 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: None Musculoskeletal History: Reports: None Neurological History: Reports: Other (See Below) Other Neuro History: Ga's Palsy Psychiatric History: Reports: None Endocrine/Metabolic History: Reports: None Hematologic History: Reports: None Immunologic History: Reports: None Oncologic (Cancer) History: Reports: None Dermatologic History: Reports: None - Infectious Disease History Infectious Disease History: Reports: None - Past Surgical History Head Surgeries/Procedures: Reports: None HEENT Surgical History: Reports: Adenoidectomy, Oral Surgery, Tonsillectomy, Other (See Below) Other HEENT Surgeries/Procedures: tooth extraction Cardiovascular Surgical History: Reports: None Respiratory Surgical History: Reports: None GI Surgical History: Reports: None Female Surgical History: Reports: None Endocrine Surgical History: Reports: None Neurological Surgical History: Reports: None Musculoskeletal Surgical History: Reports: None Oncologic Surgical History: Reports: None Dermatological Surgical History: Reports: None - HOME MEDS Home Medications: Home Meds Azithromycin 250 mg PO DAILY #6 tablet 09/30/19 [Rx] Codeine/guaiFENesin [Robitussin AC] 10 bottle PO QID PRN #1 bottle 09/30/19 [Rx] predniSONE [Prednisone] 20 mg PO DAILY #5 tablet 09/30/19 [Rx] Pnv No.95/Ferrous Fum/Folic AC [ Tablet] 1 each PO 10/28/20 [History]
[2020-10-28] MEDS ORDERED: Benzocaine/Menthol 20%-0.5% Spray 78 GM Cannister TOP PRN (16:34)
[2020-10-28] MEDS ORDERED: Ibuprofen 400 MG Tab PO PRN (16:34)
[2020-10-28] MEDS ORDERED: Witch Hazel Medicated Pads 40/Jar TOP PRN (16:34)
[2020-10-28] MEDS ORDERED: Bisacodyl 10 MG Supp RECTAL PRN (16:34)
[2020-10-28] MEDS ORDERED: Lanolin 100% Cream 7 GM Tube TOP PRN (16:34)
[2020-10-28] MEDS ORDERED: oxyCODONE 5 MG Tab PO PRN (16:34)
[2020-10-28] MEDS ORDERED: Docusate Sodium 100 MG Cap PO PRN (16:34)
[2020-10-28] MEDS ORDERED: Acetaminophen 500 MG Tab PO PRN (16:34)
--- NOTE | 2020-10-28 18:42 | PCM48HPAN ---
Post Anesthesia Note - EVALUATION WITHIN 48HRS OF ANESTHETIC Vital Signs in Normal Range: Yes Patient Participated in Evaluation: Yes Respiratory Function Stable: Yes Airway Patent: Yes Cardiovascular Function Stable: Yes Hydration Status Stable: Yes Pain Control Satisfactory: Yes Nausea and Vomiting Control Satisfactory: Yes Mental Status Recovered: Yes - COMMENTS/OBSERVATIONS Free Text/Narrative:: Did well. No problems post.
[2020-10-28] MEDS: Ibuprofen 800 MG Tab PO PRN (20:30)
[2020-10-29] MEDS: Acetaminophen 500 MG Tab PO PRN ×2 (05:40→13:50)
--- NOTE | 2020-10-29 07:35 | PCM.PNPP ---
- General Info Date of Service: 10/29/20 Admission Dx/Problem (Free Text): Subjective Update: Sitting up in bed eating breakfast this morning. Pain well controlled. Ambulating and voiding without difficulty. Tolerating regular diet. Lochia decreasing. , going well. - General Info Date of Service: 10/29/20 - Patient Data Vital Signs - Most Recent: Last Vital Signs Temp 98.5 F 10/29/20 05:35 Pulse 118 H 10/29/20 05:35 Resp 16 10/29/20 05:35 BP 125/70 10/29/20 05:35 Pulse Ox 97 10/29/20 05:35 Weight - Most Recent: 120 lb Lab Results - Last 24 Hours: Laboratory Results - last 24 hr 10/29/20 Range/Units 05:42 Hgb 11.7 L (12.0-16.0) g/dL Hct 35.9 L (36.0-46.0) % - Infant Interaction Infant Disposition, : at Bedside Feeding: Breastfed ; Nursed Well Support Person: Significant Other - Recovery Exam Fundal Tone: Firm Fundal Level: 1 Fingerbreadths Below Umbilicus Fundal Placement: Midline Lochia Amount: Scant, Small Lochia Color: Rubra/Red Perineum Description: Intact, Minimal Bruising/Swelling Bladder Status: Voiding Urinary Elimination: Voided - Exam General: Alert Lungs: Normal Respiratory Effort Cardiovascular: Regular Rate GI/Abdominal Exam: Soft, Non-Tender Extremities: Normal Range of Motion, Non-Tender, Pedal Edema (trace) Skin: Warm, Dry, Intact Neurological: No New Focal Deficit Psy/Mental Status: Normal Mood - Problem List Review Problem List Initiated/Reviewed/Updated: Yes - Assessment Assessment:: 25 year old PPD1 s/p - Plan Plan:: Routine cares * Rh positive, rubella immune, GBS negative * Pain well controlled * Regular diet as tolerated * Encourage ambulation and fluid intake today * , may try pumping today as needed Dispo: stable. Meeting milestones, anticipate discharge today pending patient/ status. Discharge precautions reviewed. Follow with visit in 4 weeks.
--- NOTE | 2020-10-29 11:56 | OR ---
SURGEON: Emanuel Sapp MD DATE OF PROCEDURE: 10/28/2020 INDICATION FOR PROCEDURE: A 25-year-old, G1, P0, at 37 weeks and 6 days who presented with premature rupture of membranes. The patient had a gush of clear fluid around midnight, and had some mild contractions. She was evaluated and confirmed to be ruptured with a positive AmnioSure. Her cervix was 3 cm dilated, which was similar to previous exams in the office. The was complicated by a septate uterus and a longitudinal vaginal septum. She is GBS negative. The patient was monitored for a few hours and did not make cervical change on her own, therefore Pitocin was started for augmentation of labor. She started having stronger contractions and desired epidural, which was placed with good pain control. She continued to progress and quickly became fully dilated and +1 station. However, on exam, it was noted that the baby's head was obstructed by the vaginal septum, which was about 1cm thick and in the midline of the vagina. Decision was made to perform an excision of the septum to allow the head to deliver. PROCEDURES PERFORMED: Normal spontaneous vaginal delivery, excision of vaginal septum, repair of first- degree laceration. PREOPERATIVE DIAGNOSES: 1. Allen intrauterine at 37 weeks 6 days. 2. Premature rupture of membranes. 3. Longitudinal vaginal septum. POSTOPERATIVE DIAGNOSES: 1. Allen intrauterine at 37 weeks 6 days. 2. Premature rupture of membranes. 3. Longitudinal vaginal septum. ANESTHESIOLOGIST: Dr. Arrington. ANESTHESIA: Epidural. FINDINGS: Viable female infant. score of 8 and 9. weight of 3430 g. Normal- appearing cervix with thick longitudinal vaginal septum in the midline of the vagina. ESTIMATED BLOOD LOSS: 400 mL. DESCRIPTION OF PROCEDURE: A right angle retractor was used to help visualize the vaginal nuñez and septum. The vaginal septum was longitudinal in the anterior-posterior dimension along the entire vaginal wall. The head was at +1 station pushing against the top of the septum. Two hemostats were used to clamp the anterior and posterior sides of the vaginal septum. A longitudinal incision was made between the two clamps along the entire length of the vaginal septum. A 3-0 Vicryl was used to place Lynn stitches along the edge of the incision for hemostasis posteriorly and anteriorly. The hemostats were then removed. Hemostasis was noted along both pedicles. The patient was then allowed to push with contractions. The head descended easily with the patient's pushing efforts. After about 30 minutes, it was noted the baby had an episode of bradycardia to the 90s for about 3 minutes. Patient was encouraged to push and head delivered in occiput anterior position, restituted ROT. Anterior shoulder delivered easily followed by posterior shoulder and remaining body. No nuchal cord was noted. The baby was pink, crying, and moving all extremities. Baby was placed on the mother's chest and evaluated by awaiting nursery staff. The umbilical cord was clamped and cut after 60 seconds and no longer pulsating. The cord gases were obtained. Placenta was removed with gentle traction on the umbilical cord. It was examined and found to be intact with 3-vessel cord. The uterus was found to be slightly boggy, so bimanual massage was performed, which improved uterine tone. Perineum and vaginal nuñez were carefully examined. She was noted to have a first-degree laceration. A 3-0 Vicryl was used to repair the laceration in usual fashion. The pedicles of the vaginal septum and the cervix were again carefully examined to make sure there were no lacerations and hemostasis again confirmed. The patient tolerated the procedure well and was given care instructions. RICKY HAGER /[id number]
[2020-10-29] MEDS: Ibuprofen 800 MG Tab PO PRN (13:49)
[2020-10-30] MEDS: Ibuprofen 800 MG Tab PO PRN (07:26)
[2020-10-30] MEDS: Acetaminophen 500 MG Tab PO PRN (07:27)
[2020-10-30 08:22] VITALS: BP 125/78; PULSE 102
--- NOTE | 2020-10-30 08:57 | PCM.PNPP ---
- General Info Date of Service: 10/30/20 Functional Status: Reports: Pain Controlled, Tolerating Diet, Ambulating, Urinating - Review of Systems General: Reports: No Symptoms HEENT: Reports: No Symptoms Pulmonary: Reports: No Symptoms Cardiovascular: Reports: No Symptoms Gastrointestinal: Reports: No Symptoms Genitourinary: Reports: No Symptoms Musculoskeletal: Reports: No Symptoms Skin: Reports: No Symptoms Neurological: Reports: No Symptoms Psychiatric: Reports: No Symptoms - Patient Data Vital Signs - Most Recent: Last Vital Signs Temp 36.2 C 10/30/20 07:30 Pulse 102 H 10/30/20 07:30 Resp 20 10/30/20 07:30 BP 125/78 10/30/20 07:30 Pulse Ox 95 10/30/20 07:30 Weight - Most Recent: 120 lb - Interaction Disposition, : at Bedside Infant Feeding: Breastfed ; Nursed Well Support Person: Significant Other - Recovery Exam Fundal Tone: Firm Fundal Level: 3 Fingerbreadths Below Umbilicus Fundal Placement: Midline Lochia Amount: Scant Lochia Color: Rubra/Red Perineum Description: Edematous, Other (see below) Other Perinuem Description: 1st degree laceration Episiotomy/Laceration: Approximated Bladder Status: Voiding Urinary Elimination: Voided - Exam General: Alert, Oriented, Cooperative, No Acute Distress HEENT: Pupils Equal, Pupils Reactive Neck: Supple, Trachea Midline Lungs: Normal Respiratory Effort GI/Abdominal Exam: Soft, Non-Tender, No Distention Extremities: Normal Inspection, Normal Range of Motion, Non-Tender, No Pedal Edema Skin: Warm, Dry, Intact Wound/Incisions: Healing Well Neurological: No New Focal Deficit Psy/Mental Status: Alert, Normal Affect, Normal Mood - Problem List Review Problem List Initiated/Reviewed/Updated: Yes - Assessment Assessment:: 25 year old PPD2 s/p - Plan Plan:: Routine cares * Rh positive, rubella immune, GBS negative * Pain well controlled * Regular diet as tolerated * Hgb stable, bleeding light, denies s/s of anemia * Encourage ambulation and fluid intake today * and supplementing with formula Dispo: stable. Meeting milestones, anticipate discharge today. Discharge precautions reviewed. Follow with visit in 4 weeks.
== END 2020-10-30 14:50 | disposition home or self-care (01) | DRG 807 ==
LOC: MW.OBCHECK 02:32 → MW.OB 02:35 → MW.OBCHECK 02:45 → MW.OB 02:45 → OBSVTOIN 16:35 → MW.OB 16:36
PROVIDERS: ADMIT Obstetrics & Gynecology; ATTEND Obstetrics & Gynecology
PROC: 10E0XZZ Delivery of Products of Conception, External Approach (ICD-10-PCS; principal; 2020-10-28)
PROC: 0HQ9XZZ Repair Perineum Skin, External Approach (ICD-10-PCS; 2020-10-28)
DX: O42.92 Full-term premature rupture of membranes, unspecified as to length of time between rupture and onset of labor (principal); Z37.0 Single live birth; Z3A.37 37 weeks gestation of pregnancy; O34.63 Maternal care for abnormality of vagina, third trimester; Q52.129 Other and unspecified longitudinal vaginal septum; O70.0 First degree perineal laceration during delivery; Z20.822 Contact with and (suspected) exposure to COVID-19
CPT/HCPCS: 36415; 51702; 59025; 59409; 84112; 85014; 85018; 85027; 86592; 86850; 86900; 86901; A9270-GY; J2590; J7120; U0002

== ENCOUNTER 2022-04-21 03:56 | Observation (INO) | payer MEDICAID ==
[2022-04-21] MEDS ORDERED: Lidocaine 1% 50 ML MDV INJECT PRN (10:05)
[2022-04-21] MEDS ORDERED: Misoprostol 200 MCG Tab PO PRN (10:05)
[2022-04-21] MEDS ORDERED: Carboprost Tromethamine 250 MCG/1 ML Amp IM PRN (10:05)
[2022-04-21] MEDS ORDERED: Water For Irrigation,Sterile 1,000 ML Container IRR PRN (10:05)
[2022-04-21] MEDS ORDERED: Sodium Chloride 0.9% 2.5 ML Syringe FLUSH PRN (10:05)
[2022-04-21] MEDS ORDERED: Sodium Chloride 0.9% 10 ML Syringe FLUSH PRN (10:05)
[2022-04-21] MEDS ORDERED: Methylergonovine 0.2 MG/1 ML Amp IM PRN (10:05)
[2022-04-21] MEDS ORDERED: Butorphanol 1 MG/ML SDV IVPUSH PRN (10:05)
[2022-04-21] MEDS ORDERED: Tranexamic Acid 1,000 MG in Sodium Chloride 0.9% 100 ML IV PRN (10:05)
[2022-04-21] MEDS ORDERED: Sodium Chloride 0.9% 20 ML SDV IV PRN (10:05)
[2022-04-21] MEDS ORDERED: Oxytocin/0.9 % Sodium Chloride 30 UNIT/500 ML BAG IV SCH (10:15)
[2022-04-21] MEDS ORDERED: ceFAZolin 2 GM in Premix Bag 1 BAG IV SCH (10:30)
[2022-04-21] MEDS: Ampicillin 2 GM in Sodium Chloride 0.9% 100 ML IV SCH ×3 (10:54→23:17)
[2022-04-21] MEDS: Lactated Ringers 1,000 ML IV SCH (10:54)
[2022-04-22] MEDS: Ampicillin 2 GM in Sodium Chloride 0.9% 100 ML IV SCH ×3 (05:15→16:54)
[2022-04-22] MEDS: Lactated Ringers 1,000 ML IV SCH (16:53)
[2022-04-22] MEDS ORDERED: Betamethasone Acetate/Betamethasone Sod Phosphate 30 MG/5 ML MDV IM ONE (17:16)
== END 2022-04-22 18:33 ==
LOC: MW.OBCHECK 03:56 → MW.OB 10:07
PROVIDERS: ADMIT Obstetrics & Gynecology Obstetrics; ATTEND Obstetrics & Gynecology Obstetrics
DX: O46.93 Antepartum hemorrhage, unspecified, third trimester (principal); O09.213 Supervision of pregnancy with history of pre-term labor, third trimester; O99.353 Diseases of the nervous system complicating pregnancy, third trimester; G43.909 Migraine, unspecified, not intractable, without status migrainosus; Z3A.35 35 weeks gestation of pregnancy; Z88.7 Allergy status to serum and vaccine; Z98.890 Other specified postprocedural states; Z20.822 Contact with and (suspected) exposure to COVID-19
CPT/HCPCS: 36415; 59025; 76815; 84112; 85025; 86592; 86850; 86900; 86901; 87635; 87653; J0290; J0702; J7120; U0002

== ENCOUNTER 2025-07-19 13:23 | Emergency (ER) | payer MEDICAID ==
[2025-07-19] MEDS: Benzocaine 20% Topical Spray UD MUCMEM ONE (14:23)
[2025-07-19] MEDS: Lidocaine 2% Viscous Solution 15 ML UD PO ONE (14:23)
[2025-07-19 15:42] VITALS: BP 116/66; PULSE 90
== END 2025-07-19 15:44 | disposition home or self-care (01) ==
LOC: MW.ED 13:23
DX: K04.7 Periapical abscess without sinus (principal); Z79.899 Other long term (current) drug therapy
CPT/HCPCS: 41800; 99283; A9270; J3490